=== PATIENT | female | born 1995 | race Caucasian/White ===

== ENCOUNTER 2016-11-28 23:29 | Emergency (ER) | payer BC ==
[2016-11-28 23:36] VITALS: BP 141/113; PULSE 108; TEMP 98.4; BMI 39.4
--- NOTE | 2016-11-28 23:37 | PDOC ---
History of Present Illness - General Chief Complaint: Injury Stated Complaint: STUBBED LEFT PINKY TOE Time Seen by Provider: 11/28/16 23:31 History Source: Patient Exam Limitations: No Limitations - History of Present Illness Initial Comments: 21 yo F no significant PMH presents with L fifth toe pain after hitting it on a door frame just [employer]. No other injuries. She states that she has moderate pain to the toe, with associated numbness and swelling. Worse with walking, better with rest. Past History - Past Medical History Allergies/Adverse Reactions: Allergies Allergy/AdvReac Type Severity Reaction Status Date / Time No Known Allergies Allergy Verified 11/28/16 23:30 Home Medications: Ambulatory Orders NK [No Known Home Medication] 11/28/16 Asthma: Yes - Immunization History Td Vaccination: Yes Immunization Up to Date: Yes - Psycho/Social/Smoking Cessation Hx Anxiety: Yes Suicidal Ideation: No Smoking Status: No Smoking History: Never smoked Number of Cigarettes Smoked Daily: 0 Cigars Per Day: 0 Review of Systems - Review of Systems Able to Perform ROS?: Yes Comments:: GENERAL/CONSTITUTIONAL: No fever or chills. No weakness. HEAD, EYES, EARS, NOSE AND THROAT: No change in vision. No ear pain or discharge. No sore throat. MUSCULOSKELETAL: +L fifth toe pain. Extremities otherwise with no joint or muscle swelling or pain. No neck or back pain. SKIN: No rash NEUROLOGIC: No headache, vertigo, loss of consciousness, or change in strength. +Numbness to the L fifth toe. *Physical Exam - Physical Exam Comments: GENERAL: Awake, alert, and fully oriented, in no acute distress HEAD: No signs of trauma EXTREMITIES: L fifth toe tender, edematous. +FROM. Cap refill <2s. Remainder of extremities with normal range of motion, no edema. No clubbing or cyanosis. No cords, erythema, or tenderness NEUROLOGICAL: Cranial nerves II through XII grossly intact. Normal speech. Antalgic gait. SKIN: Warm, Dry, normal turgor, no rashes or lesions noted. *DC/Admit/Observation/Transfer Diagnosis at time of Disposition: Pain of toe of left foot - Discharge Dispostion Disposition: HOME Condition at time of disposition: Stable Admit: No
== END 2016-11-29 00:23 | disposition home or self-care (01) ==
LOC: FER 23:29
DX: M79.675 Pain in left toe(s) (principal); J45.909 Unspecified asthma, uncomplicated; F41.9 Anxiety disorder, unspecified
CPT/HCPCS: 73660-TC; 99281-25

== ENCOUNTER 2017-01-25 23:23 | Emergency (ER) | payer OTHER, BC ==
[2017-01-25 23:34] VITALS: BP 132/85; PULSE 87; TEMP 98.7; BMI 37.8
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
[2017-01-25] MEDS ORDERED: IBUPROFEN 600 MG TABLET (FP) PO ONE (23:56)
[2017-01-26] MEDS ORDERED: IBUPROFEN 600 MG TABLET (FP) PO ONE ×2 (00:02)
== END 2017-01-26 01:31 | disposition home or self-care (01) ==
LOC: FER 23:23
DX: S16.1XXA Strain of muscle, fascia and tendon at neck level, initial encounter (principal); V43.62XA Car passenger injured in collision with other type car in traffic accident, initial encounter; Y93.89 Activity, other specified; Y92.410 Unspecified street and highway as the place of occurrence of the external cause
CPT/HCPCS: 72050-TC; 99283-25